=== PATIENT | male | born 1990 | race Caucasian/White ===

== ENCOUNTER 2018-09-14 15:31 | Emergency (ER) | payer MEDICAID ==
[~2018-09-14] VITALS: Ht 162.6 cm; Wt 70.0 kg
[2018-09-14 15:42] VITALS: BP 135/84
[2018-09-14] MEDS ORDERED: dexamethasone 4mg tablet PO ONE (16:20)
[2018-09-14] MEDS ORDERED: TYL650S RC (16:22)
[2018-09-14] MEDS ORDERED: IBUP-1985 PO (16:22)
[2018-09-14] MEDS ORDERED: ACET-2615 PO (16:26)
== END 2018-09-14 16:40 | disposition home or self-care (01) ==
LOC: ER 15:32
DX: J39.2 Other diseases of pharynx (principal); J02.9 Acute pharyngitis, unspecified; F12.10 Cannabis abuse, uncomplicated; Z88.5 Allergy status to narcotic agent; Z79.899 Other long term (current) drug therapy
CPT/HCPCS: 99282; J8540